=== PATIENT | female | born 2005 | race Caucasian/White ===

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

== ENCOUNTER 2024-10-11 08:27 | Emergency (ER) | payer MEDICAID ==
[~2024-10-11] VITALS: Ht 157.5 cm; Wt 130.0 kg
[2024-10-11 08:33] VITALS: TEMP 98
[2024-10-11 12:29] VITALS: BP 155/85; PULSE 82; RESP 16; O2SAT 98
== END 2024-10-11 12:31 | disposition home or self-care (01) ==
LOC: ER 08:27
DX: O03.4 Incomplete spontaneous abortion without complication (principal); O99.332 Smoking (tobacco) complicating pregnancy, second trimester; Z3A.16 16 weeks gestation of pregnancy
CPT/HCPCS: 36415; 76801; 76805; 76817; 84702; 86900; 86901; 99284